=== PATIENT | female | born 1980 | race Caucasian/White ===

== ENCOUNTER → 2017-09-14 | Outpatient (CLI) | payer OTHER ==
[~2017-09-14] MED LIST: ALLEGRA ALLERG180 MG PO; AMOX1TAB5 PO; CALCITRIOL0.25 MCG; CALCITRIOL0.25 MCG PO; CALCIUM600 MG; FIORICET 50-301 EACH; FLONASE16 GM NS; IOPHEN DM-100 MG/5 M PO; IRBESARTAN150 MG; IRBESARTAN150 MG PO; LOW-OGESTREL1 TAB PO; NORVASC5 MG; NORVASC5 MG PO; ORALSEP BC; SINGULAIR 10MG10 MG PO; SYNTHROID175 MCG; SYNTHROID175 MCG PO; SYNTHROID200 MCG; SYNTHROID200 MCG PO; TESSALON PERLE100 MG PO; ZITHROMAX TRI-500 MG PO; ZYRTEC10 MG PO
== END | disposition home or self-care (01) ==
LOC: MAMO-SONO 16:00
DX: Z12.31 Encounter for screening mammogram for malignant neoplasm of breast (principal); N60.21 Fibroadenosis of right breast; N60.22 Fibroadenosis of left breast; D24.1 Benign neoplasm of right breast; D24.2 Benign neoplasm of left breast

== ENCOUNTER → 2017-10-07 | Outpatient (CLI) | payer OTHER | END | disposition home or self-care (01) | LOC: PPHC 15:34 | DX: E03.8 Other specified hypothyroidism (principal); I10 Essential (primary) hypertension ==

== ENCOUNTER → 2017-10-19 | Outpatient (CLI) | payer OTHER | END | disposition home or self-care (01) | LOC: LAB 06:13 | DX: Z12.39 Encounter for other screening for malignant neoplasm of breast (principal) ==

== ENCOUNTER 2017-12-20 08:01 | Outpatient (CLI) | payer OTHER | END 2017-12-20 08:15 | disposition home or self-care (01) | LOC: LAB 08:01 | DX: Z13.1 Encounter for screening for diabetes mellitus (principal); R73.03 Prediabetes; I10 Essential (primary) hypertension; E89.0 Postprocedural hypothyroidism; E89.2 Postprocedural hypoparathyroidism ==

== ENCOUNTER → 2017-12-23 | Outpatient (CLI) | payer OTHER | END | disposition home or self-care (01) | LOC: LAB 11:01 | DX: M06.9 Rheumatoid arthritis, unspecified (principal) ==

== ENCOUNTER 2018-05-16 16:01 | Outpatient (CLI) | payer OTHER ==
[~2018-05-16 16:01] MED LIST changes: -ALLEGRA ALLERG180 MG PO; -AMOX1TAB5 PO; -CALCIUM600 MG; -FIORICET 50-301 EACH; -FLONASE16 GM NS; -IOPHEN DM-100 MG/5 M PO; -SINGULAIR 10MG10 MG PO; -SYNTHROID200 MCG; -SYNTHROID200 MCG PO; -TESSALON PERLE100 MG PO; -ZITHROMAX TRI-500 MG PO
== END 2018-05-16 16:15 | disposition home or self-care (01) ==
LOC: OFIC 805 16:01
DX: H65.192 Other acute nonsuppurative otitis media, left ear (principal); R09.81 Nasal congestion

== ENCOUNTER 2018-06-12 08:03 | Outpatient (CLI) | payer OTHER ==
[~2018-06-12] VITALS: Ht 152.4 cm; Wt 117.9 kg
[~2018-06-12 08:03] MED LIST changes: +ALLEGRA ALLERG180 MG PO; +AMOX1TAB5 PO; +CALCIUM600 MG; +FIORICET 50-301 EACH; +FLONASE16 GM NS; +IOPHEN DM-100 MG/5 M PO; +SINGULAIR 10MG10 MG PO; +SYNTHROID200 MCG; +SYNTHROID200 MCG PO; +TESSALON PERLE100 MG PO; +ZITHROMAX TRI-500 MG PO
== END 2018-06-12 08:15 | disposition home or self-care (01) ==
LOC: OFIC 805 08:03
DX: R09.81 Nasal congestion (principal); B34.9 Viral infection, unspecified; J30.89 Other allergic rhinitis

== ENCOUNTER → 2018-06-13 07:28 | Outpatient (CLI) | payer OTHER | END | disposition home or self-care (01) | LOC: LAB 07:28 | DX: E89.2 Postprocedural hypoparathyroidism (principal); E03.8 Other specified hypothyroidism; I10 Essential (primary) hypertension; R73.03 Prediabetes; D35.2 Benign neoplasm of pituitary gland; D27.1 Benign neoplasm of left ovary; E55.9 Vitamin D deficiency, unspecified; E78.2 Mixed hyperlipidemia; M62.81 Muscle weakness (generalized); M05.4 Rheumatoid myopathy with rheumatoid arthritis ==

== ENCOUNTER 2018-10-25 07:29 | Outpatient (CLI) | payer OTHER | END 2018-10-25 08:26 | disposition home or self-care (01) | LOC: LAB 07:29 | DX: E20.8 Other hypoparathyroidism (principal); R73.03 Prediabetes; I10 Essential (primary) hypertension; N83.202 Unspecified ovarian cyst, left side; D35.2 Benign neoplasm of pituitary gland; M32.9 Systemic lupus erythematosus, unspecified; E03.8 Other specified hypothyroidism; E55.9 Vitamin D deficiency, unspecified ==

== ENCOUNTER 2018-12-20 07:38 | Outpatient (CLI) | payer OTHER | END 2018-12-20 07:40 | disposition home or self-care (01) | LOC: LAB 07:38 | DX: E89.0 Postprocedural hypothyroidism (principal) ==

== ENCOUNTER 2019-03-29 13:56 | Outpatient (CLI) | payer OTHER | END 2019-03-29 14:03 | disposition home or self-care (01) | LOC: LAB 13:56 | DX: Z11.3 Encounter for screening for infections with a predominantly sexual mode of transmission (principal) ==

== ENCOUNTER 2019-05-23 10:42 | Outpatient (CLI) | payer OTHER | END 2019-05-23 10:44 | disposition home or self-care (01) | LOC: RAD 10:42 | DX: M54.2 Cervicalgia (principal); M54.89 Other dorsalgia ==

== ENCOUNTER 2019-07-02 14:52 | Outpatient (CLI) | payer OTHER | END 2019-07-02 14:54 | disposition home or self-care (01) | LOC: RAD 14:52 | DX: M25.562 Pain in left knee (principal) ==

== ENCOUNTER 2019-08-24 12:42 | Emergency (ER) | payer OTHER ==
[~2019-08-24] VITALS: Ht 160 cm; Wt 103.9 kg
[~2019-08-24 12:42] MED LIST changes: +NABUMETONE750 MG PO
[2019-08-24] MEDS ORDERED: HYDROCHLOROTH12.5 MG PO (12:59)
[2019-08-24] MEDS ORDERED: SYNTHROID175 MCG PO (12:59)
[2019-08-24] MEDS ORDERED: CALCITRIOL0.25 MCG PO (13:00)
[2019-08-24] MEDS ORDERED: LOW-OGESTREL-21 EACH (13:00)
[2019-08-24] MEDS ORDERED: BUTALBIT-ACETA1 EACH PO (13:09)
== END 2019-08-24 13:28 | disposition home or self-care (01) ==
LOC: ER 12:42
DX: G43.809 Other migraine, not intractable, without status migrainosus (principal)

== ENCOUNTER 2020-02-14 08:10 | Outpatient (CLI) | payer OTHER ==
[~2020-02-14 08:10] MED LIST changes: +BUTALBIT-ACETA1 EACH PO; +HYDROCHLOROTH12.5 MG PO; +LOW-OGESTREL-21 EACH
== END 2020-02-14 08:17 | disposition home or self-care (01) ==
LOC: LAB 08:10
PROVIDERS: ATTEND Radiology Diagnostic Radiology
DX: R51 Headache (principal)

== ENCOUNTER → 2020-02-14 | Outpatient (CLI) | payer OTHER | END | disposition home or self-care (01) | LOC: MRI 11:53 | DX: D35.2 Benign neoplasm of pituitary gland (principal); I67.81 Acute cerebrovascular insufficiency; R51 Headache ==

== ENCOUNTER 2020-03-21 08:22 | Outpatient (CLI) | payer OTHER | END 2020-03-21 15:00 | disposition home or self-care (01) | LOC: LAB 08:22 | DX: E03.8 Other specified hypothyroidism (principal); E11.65 Type 2 diabetes mellitus with hyperglycemia; E55.9 Vitamin D deficiency, unspecified; I10 Essential (primary) hypertension; Q50.1 Developmental ovarian cyst; D35.2 Benign neoplasm of pituitary gland ==

== ENCOUNTER 2020-04-15 09:31 | Outpatient (CLI) | payer OTHER ==
[~2020-04-15 09:31] MED LIST changes: +SKELAXIN800 MG PO; +VOLTAREN100 GM TOP
== END 2020-04-16 11:06 | disposition home or self-care (01) ==
LOC: RAD 09:31
DX: Z85.3 Personal history of malignant neoplasm of breast (principal); M25.562 Pain in left knee; Z12.31 Encounter for screening mammogram for malignant neoplasm of breast

== ENCOUNTER 2020-04-16 11:01 | Outpatient (CLI) | payer OTHER | END 2020-04-16 11:09 | disposition home or self-care (01) | LOC: MRI 11:01 | DX: M25.461 Effusion, right knee (principal); S83.101A Unspecified subluxation of right knee, initial encounter; S83.001A Unspecified subluxation of right patella, initial encounter | CPT/HCPCS: 73721 ==

== ENCOUNTER 2020-04-19 02:20 | Emergency (ER) | payer OTHER ==
[~2020-04-19] VITALS: Ht 160 cm; Wt 112.5 kg
[2020-04-19] MEDS ORDERED: KETO10TA2 PO (06:52)
== END 2020-04-19 07:13 | disposition home or self-care (01) ==
LOC: ER 02:20
DX: O26.891 Other specified pregnancy related conditions, first trimester (principal); R10.2 Pelvic and perineal pain; O34.81 Maternal care for other abnormalities of pelvic organs, first trimester; N83.292 Other ovarian cyst, left side; Z3A.01 Less than 8 weeks gestation of pregnancy

== ENCOUNTER 2020-05-27 06:00 | Outpatient (CLI) | payer OTHER ==
[~2020-05-27 06:00] MED LIST changes: +KETO10TA2 PO
== END 2020-05-27 14:10 | disposition home or self-care (01) ==
LOC: PPH VACUNA 06:00
DX: Z23 Encounter for immunization (principal)

== ENCOUNTER 2020-08-15 14:22 | Outpatient (CLI) | payer OTHER ==
[~2020-08-15 14:22] MED LIST changes: +DOLOGESIC 500-1 EACH PO
== END 2020-08-18 08:08 | disposition home or self-care (01) ==
LOC: RAD 14:22
PROVIDERS: ATTEND Internal Medicine Sports Medicine
DX: M22.42 Chondromalacia patellae, left knee (principal); M25.562 Pain in left knee; M17.12 Unilateral primary osteoarthritis, left knee
CPT/HCPCS: 73721

== ENCOUNTER 2020-11-03 07:47 | Outpatient (CLI) | payer OTHER | END 2020-11-03 07:59 | disposition home or self-care (01) | LOC: LAB 07:47 | PROVIDERS: ATTEND General Practice | DX: E03.8 Other specified hypothyroidism (principal); E89.2 Postprocedural hypoparathyroidism; D35.2 Benign neoplasm of pituitary gland; I10 Essential (primary) hypertension; E78.01 Familial hypercholesterolemia ==

== ENCOUNTER 2020-12-25 08:55 | Outpatient (CLI) | payer OTHER | END 2020-12-25 15:25 | disposition home or self-care (01) | LOC: LAB 08:55 | PROVIDERS: ATTEND Internal Medicine | DX: M32.8 Other forms of systemic lupus erythematosus (principal); B19.9 Unspecified viral hepatitis without hepatic coma; N05.2 Unspecified nephritic syndrome with diffuse membranous glomerulonephritis; N18.1 Chronic kidney disease, stage 1; E03.8 Other specified hypothyroidism; I10 Essential (primary) hypertension; M06.8A Other specified rheumatoid arthritis, other specified site; M35.00 Sjogren syndrome, unspecified; B96.0 Mycoplasma pneumoniae [M. pneumoniae] as the cause of diseases classified elsewhere; A69.20 Lyme disease, unspecified; B27.90 Infectious mononucleosis, unspecified without complication; B20 Human immunodeficiency virus [HIV] disease ==

== ENCOUNTER 2021-04-24 14:32 | Outpatient (CLI) | payer OTHER | END 2021-04-24 14:45 | disposition home or self-care (01) | LOC: MAMO-SONO 14:32 | PROVIDERS: ATTEND Surgery | DX: N60.21 Fibroadenosis of right breast (principal); N60.11 Diffuse cystic mastopathy of right breast; Z12.31 Encounter for screening mammogram for malignant neoplasm of breast; D24.1 Benign neoplasm of right breast; N60.22 Fibroadenosis of left breast; N60.12 Diffuse cystic mastopathy of left breast ==

== ENCOUNTER 2021-05-06 10:03 | Outpatient (CLI) | payer OTHER | END 2021-05-06 10:19 | disposition home or self-care (01) | LOC: LAB 10:03 | PROVIDERS: ATTEND General Practice | DX: Z03.818 Encounter for observation for suspected exposure to other biological agents ruled out (principal) ==

== ENCOUNTER 2021-06-05 08:00 | Outpatient (CLI) | payer OTHER | END 2021-06-05 08:30 | disposition home or self-care (01) | LOC: PPH VACUNA 08:00 | PROVIDERS: ATTEND Emergency Medicine Pediatric Emergency Medicine | DX: Z23 Encounter for immunization (principal) ==

== ENCOUNTER 2021-06-08 08:00 | Outpatient (CLI) | payer OTHER | END 2021-06-08 08:30 | disposition home or self-care (01) | LOC: PPH VACUNA 08:00 | PROVIDERS: ATTEND Emergency Medicine Pediatric Emergency Medicine | DX: Z23 Encounter for immunization (principal) ==

== ENCOUNTER 2021-06-16 10:54 | Outpatient (CLI) | payer OTHER | END 2021-06-16 10:59 | disposition home or self-care (01) | LOC: RAD 10:54 | PROVIDERS: ATTEND Internal Medicine | DX: M17.0 Bilateral primary osteoarthritis of knee (principal) ==

== ENCOUNTER 2021-07-03 07:24 | Outpatient (CLI) | payer OTHER | END 2021-07-03 15:28 | disposition home or self-care (01) | LOC: LAB 07:24 | PROVIDERS: ATTEND Internal Medicine | DX: R63.5 Abnormal weight gain (principal); E89.0 Postprocedural hypothyroidism ==

== ENCOUNTER 2021-10-05 07:24 | Outpatient (CLI) | payer OTHER | END 2021-10-05 09:35 | disposition home or self-care (01) | LOC: LAB 07:24 | PROVIDERS: ATTEND Internal Medicine | DX: I51.7 Cardiomegaly (principal); I10 Essential (primary) hypertension; Z87.59 Personal history of other complications of pregnancy, childbirth and the puerperium; E89.0 Postprocedural hypothyroidism; E66.01 Morbid (severe) obesity due to excess calories; Z68.41 Body mass index [BMI] 40.0-44.9, adult; E78.49 Other hyperlipidemia; E53.8 Deficiency of other specified B group vitamins; E55.9 Vitamin D deficiency, unspecified; Z11.3 Encounter for screening for infections with a predominantly sexual mode of transmission; Z11.4 Encounter for screening for human immunodeficiency virus [HIV]; Z83.3 Family history of diabetes mellitus ==

== ENCOUNTER 2021-10-05 07:50 | Outpatient (CLI) | payer OTHER | END 2021-10-05 07:53 | disposition home or self-care (01) | LOC: RAD 07:50 | PROVIDERS: ATTEND Internal Medicine | DX: M17.0 Bilateral primary osteoarthritis of knee (principal); I51.7 Cardiomegaly; N28.89 Other specified disorders of kidney and ureter; Z87.59 Personal history of other complications of pregnancy, childbirth and the puerperium; E89.0 Postprocedural hypothyroidism; E66.01 Morbid (severe) obesity due to excess calories; Z68.41 Body mass index [BMI] 40.0-44.9, adult; E78.49 Other hyperlipidemia; E53.8 Deficiency of other specified B group vitamins; E55.9 Vitamin D deficiency, unspecified; Z13.1 Encounter for screening for diabetes mellitus; Z11.3 Encounter for screening for infections with a predominantly sexual mode of transmission; Z11.4 Encounter for screening for human immunodeficiency virus [HIV] ==

== ENCOUNTER 2021-10-05 08:46 | Outpatient (CLI) | payer OTHER | END 2021-10-05 09:04 | disposition home or self-care (01) | LOC: NUCLEAR 08:46 | PROVIDERS: ATTEND Internal Medicine | DX: I51.7 Cardiomegaly (principal); I10 Essential (primary) hypertension ==

== ENCOUNTER 2021-10-10 10:39 | Outpatient (CLI) | payer OTHER | END 2021-10-10 10:54 | disposition home or self-care (01) | LOC: LAB 10:39 | PROVIDERS: ATTEND Internal Medicine | DX: E53.8 Deficiency of other specified B group vitamins (principal) ==

== ENCOUNTER 2021-10-30 10:28 | Outpatient (CLI) | payer OTHER | END 2021-10-30 11:21 | disposition home or self-care (01) | LOC: LAB 10:28 | PROVIDERS: ATTEND Internal Medicine | DX: E53.8 Deficiency of other specified B group vitamins (principal) ==

== ENCOUNTER 2021-11-05 08:00 | Outpatient (CLI) | payer OTHER ==
[2021-11-18] MEDS ORDERED: NABUMETONE750 MG PO (15:20)
[2021-11-18] MEDS ORDERED: NORFLEX100MG PO (15:20)
== END 2021-11-05 15:24 | disposition home or self-care (01) ==
LOC: LAB 08:00
DX: I10 Essential (primary) hypertension (principal); R73.09 Other abnormal glucose

== ENCOUNTER 2022-01-12 08:02 | Outpatient (CLI) | payer OTHER ==
[~2022-01-12 08:02] MED LIST changes: +NORFLEX100MG PO
== END 2022-01-12 09:39 | disposition home or self-care (01) ==
LOC: LAB 08:02
DX: N18.1 Chronic kidney disease, stage 1 (principal); I10 Essential (primary) hypertension; N30.00 Acute cystitis without hematuria; Z32.00 Encounter for pregnancy test, result unknown; Z85.43 Personal history of malignant neoplasm of ovary; E53.8 Deficiency of other specified B group vitamins; E89.0 Postprocedural hypothyroidism; R73.03 Prediabetes; Z13.1 Encounter for screening for diabetes mellitus; Z83.3 Family history of diabetes mellitus; E78.5 Hyperlipidemia, unspecified; Z87.59 Personal history of other complications of pregnancy, childbirth and the puerperium; E66.01 Morbid (severe) obesity due to excess calories

== ENCOUNTER 2022-02-15 08:33 | Outpatient (CLI) | payer OTHER | END 2022-02-15 09:25 | disposition home or self-care (01) | LOC: LAB 08:33 | PROVIDERS: ATTEND Internal Medicine | DX: D64.9 Anemia, unspecified (principal); R10.9 Unspecified abdominal pain; E03.9 Hypothyroidism, unspecified; E78.5 Hyperlipidemia, unspecified; R73.01 Impaired fasting glucose; D35.2 Benign neoplasm of pituitary gland; I10 Essential (primary) hypertension; E89.2 Postprocedural hypoparathyroidism ==

== ENCOUNTER 2022-04-06 08:24 | Outpatient (CLI) | payer OTHER | END 2022-04-06 08:32 | disposition home or self-care (01) | LOC: LAB 08:24 | PROVIDERS: ATTEND Specialist | DX: I10 Essential (primary) hypertension (principal); R73.09 Other abnormal glucose; E66.01 Morbid (severe) obesity due to excess calories; Z68.42 Body mass index [BMI] 45.0-49.9, adult; Z28.9 Immunization not carried out for unspecified reason ==

== ENCOUNTER 2022-04-13 08:11 | Outpatient (CLI) | payer OTHER | END 2022-04-13 08:12 | disposition home or self-care (01) | LOC: LAB 08:11 | PROVIDERS: ATTEND Internal Medicine | DX: E88.81 Metabolic syndrome and other insulin resistance (principal) ==

== ENCOUNTER 2022-05-12 08:00 | Outpatient (CLI) | payer OTHER | END 2022-05-12 08:05 | disposition home or self-care (01) | LOC: PPH VACUNA 08:00 | PROVIDERS: ATTEND Emergency Medicine Pediatric Emergency Medicine | DX: Z23 Encounter for immunization (principal) ==

== ENCOUNTER 2022-05-24 08:26 | Outpatient (CLI) | payer OTHER | END 2022-05-24 08:36 | disposition home or self-care (01) | LOC: PPH VACUNA 08:26 | PROVIDERS: ATTEND Emergency Medicine Pediatric Emergency Medicine | DX: Z23 Encounter for immunization (principal) ==

== ENCOUNTER 2022-05-24 08:35 | Outpatient (CLI) | payer OTHER | END 2022-05-24 08:36 | disposition home or self-care (01) | LOC: LAB 08:35 | DX: E79.0 Hyperuricemia without signs of inflammatory arthritis and tophaceous disease (principal); E55.9 Vitamin D deficiency, unspecified; I13.10 Hypertensive heart and chronic kidney disease without heart failure, with stage 1 through stage 4 chronic kidney disease, or unspecified chronic kidney disease ==

== ENCOUNTER 2022-06-03 08:08 | Outpatient (CLI) | payer OTHER | END 2022-06-03 08:19 | disposition home or self-care (01) | LOC: MAMO-SONO 08:08 | DX: Z12.31 Encounter for screening mammogram for malignant neoplasm of breast (principal); N60.29 Fibroadenosis of unspecified breast ==

== ENCOUNTER 2022-06-30 09:45 | Outpatient (CLI) | payer OTHER | END 2022-06-30 15:29 | disposition home or self-care (01) | LOC: RX STUDY 09:45 | PROVIDERS: ATTEND Obstetrics & Gynecology Reproductive Endocrinology | DX: R13.10 Dysphagia, unspecified (principal) ==

== ENCOUNTER → 2022-09-01 07:45 | Outpatient (CLI) | payer OTHER | END | disposition home or self-care (01) | LOC: LAB 07:45 | PROVIDERS: ATTEND General Practice | DX: E03.9 Hypothyroidism, unspecified (principal); E28.2 Polycystic ovarian syndrome; I10 Essential (primary) hypertension; E78.01 Familial hypercholesterolemia; D31.2 Benign neoplasm of retina ==

== ENCOUNTER 2022-09-27 14:28 | Outpatient (CLI) | payer OTHER | END 2022-09-27 14:39 | disposition home or self-care (01) | LOC: RAD 14:28 | PROVIDERS: ATTEND Internal Medicine | DX: M17.0 Bilateral primary osteoarthritis of knee (principal); M76.51 Patellar tendinitis, right knee; M70.41 Prepatellar bursitis, right knee ==

== ENCOUNTER 2022-09-28 07:33 | Outpatient (CLI) | payer OTHER | END 2022-09-28 07:38 | disposition home or self-care (01) | LOC: SONOGRAMA 07:33 | PROVIDERS: ATTEND Specialist | DX: M76.51 Patellar tendinitis, right knee (principal); M70.41 Prepatellar bursitis, right knee ==

== ENCOUNTER 2022-09-29 10:59 | Outpatient (CLI) | payer OTHER | END 2022-09-29 13:00 | disposition home or self-care (01) | LOC: LAB 10:59 | PROVIDERS: ATTEND Internal Medicine Sports Medicine | DX: J20.0 Acute bronchitis due to Mycoplasma pneumoniae (principal); J20.9 Acute bronchitis, unspecified; J11.08 Influenza due to unidentified influenza virus with specified pneumonia; J15.7 Pneumonia due to Mycoplasma pneumoniae; N18.2 Chronic kidney disease, stage 2 (mild) ==

== ENCOUNTER 2022-11-11 07:36 | Outpatient (CLI) | payer OTHER | END 2022-11-11 23:00 | disposition home or self-care (01) | LOC: LAB 07:36 | PROVIDERS: ATTEND Internal Medicine | DX: D64.9 Anemia, unspecified (principal); R10.9 Unspecified abdominal pain; E78.5 Hyperlipidemia, unspecified; E11.9 Type 2 diabetes mellitus without complications; Z32.00 Encounter for pregnancy test, result unknown; D50.9 Iron deficiency anemia, unspecified; E55.9 Vitamin D deficiency, unspecified; D51.3 Other dietary vitamin B12 deficiency anemia; E03.9 Hypothyroidism, unspecified; M06.4 Inflammatory polyarthropathy; M10.09 Idiopathic gout, multiple sites ==

== ENCOUNTER → 2022-11-25 07:48 | Outpatient (CLI) | payer OTHER | END | disposition home or self-care (01) | LOC: LAB 07:48 | PROVIDERS: ATTEND General Practice | DX: D35.2 Benign neoplasm of pituitary gland (principal); E28.2 Polycystic ovarian syndrome; E03.9 Hypothyroidism, unspecified; E89.2 Postprocedural hypoparathyroidism; I10 Essential (primary) hypertension ==

== ENCOUNTER 2022-12-01 13:50 | Outpatient (CLI) | payer OTHER | END 2022-12-01 13:55 | disposition home or self-care (01) | LOC: NUCLEAR 13:50 | PROVIDERS: ATTEND Internal Medicine | DX: I82.402 Acute embolism and thrombosis of unspecified deep veins of left lower extremity (principal) ==

== ENCOUNTER 2023-01-05 09:36 | Outpatient (CLI) | payer OTHER | END 2023-01-05 09:40 | disposition home or self-care (01) | LOC: LAB 09:36 | DX: D64.9 Anemia, unspecified (principal); N18.2 Chronic kidney disease, stage 2 (mild) ==

== ENCOUNTER 2023-02-02 10:35 | Outpatient (CLI) | payer OTHER | END 2023-02-02 11:58 | disposition home or self-care (01) | LOC: LAB 10:35 | PROVIDERS: ATTEND Internal Medicine | DX: Z34.01 Encounter for supervision of normal first pregnancy, first trimester (principal); E03.8 Other specified hypothyroidism ==

== ENCOUNTER → 2023-02-03 08:10 | Outpatient (CLI) | payer OTHER | END | disposition home or self-care (01) | LOC: LAB 08:10 | PROVIDERS: ATTEND Internal Medicine | DX: D50.0 Iron deficiency anemia secondary to blood loss (chronic) (principal); E53.8 Deficiency of other specified B group vitamins; D52.9 Folate deficiency anemia, unspecified ==

== ENCOUNTER 2023-02-23 07:27 | Outpatient (CLI) | payer OTHER | END 2023-02-23 07:35 | disposition home or self-care (01) | LOC: LAB 07:27 | PROVIDERS: ATTEND Internal Medicine | DX: D50.0 Iron deficiency anemia secondary to blood loss (chronic) (principal); N18.2 Chronic kidney disease, stage 2 (mild); Z34.91 Encounter for supervision of normal pregnancy, unspecified, first trimester; O21.9 Vomiting of pregnancy, unspecified; O12.11 Gestational proteinuria, first trimester; R73.03 Prediabetes; Z13.1 Encounter for screening for diabetes mellitus; Z83.3 Family history of diabetes mellitus ==

== ENCOUNTER 2023-03-16 07:29 | Outpatient (CLI) | payer OTHER | END 2023-03-16 07:48 | disposition home or self-care (01) | LOC: LAB 07:29 | PROVIDERS: ATTEND Internal Medicine | DX: E03.8 Other specified hypothyroidism (principal) ==

== ENCOUNTER → 2023-05-12 | Outpatient (CLI) | payer OTHER | END | disposition home or self-care (01) | LOC: PPH VACUNA | PROVIDERS: ATTEND Emergency Medicine Pediatric Emergency Medicine | DX: Z23 Encounter for immunization (principal) ==

== ENCOUNTER 2023-05-18 09:42 | Outpatient (CLI) | payer OTHER | END 2023-05-18 10:08 | disposition home or self-care (01) | LOC: RAD 09:42 | PROVIDERS: ATTEND Internal Medicine | DX: J20.9 Acute bronchitis, unspecified (principal) ==

== ENCOUNTER 2023-05-19 09:43 | Outpatient (CLI) | payer OTHER | END 2023-05-19 09:48 | disposition home or self-care (01) | LOC: LAB 09:43 | DX: J11.89 Influenza due to unidentified influenza virus with other manifestations (principal) ==

== ENCOUNTER 2023-06-20 09:33 | Outpatient (CLI) | payer OTHER ==
[2023-06-20 10:48] LABS: PH,URINE 6.5 (5.0-8.0); URINE APPEARANCE Clear; URINE BILIRRUBIN Negative (NEGATIVE); URINE BLOOD Negative; URINE COLOR Yellow; URINE GLUCOSE Negative (NEGATIVE); URINE LEUKOCYTE Negative; URINE NITRATE Negative; URINE PROTEIN Negative (NEGATIVE)
[2023-06-20 10:55] LABS: URINE BACTERIA 50.3 uL (0.0-1933); URINE EPITHELIAL CELLS 8.3 uL (0.0-38.8); URINE RBC 24.1 uL (0.0-20.8); URINE WBC 2.7 uL (0.0-23.2)
== END 2023-06-20 10:54 | disposition home or self-care (01) ==
LOC: LAB 09:33
DX: N30.00 Acute cystitis without hematuria (principal)

== ENCOUNTER 2023-06-22 07:39 | Outpatient (CLI) | payer OTHER | END 2023-06-22 07:50 | disposition home or self-care (01) | LOC: MAMO-SONO 07:39 | PROVIDERS: ATTEND Internal Medicine | DX: Z12.31 Encounter for screening mammogram for malignant neoplasm of breast (principal); N64.9 Disorder of breast, unspecified ==

== ENCOUNTER 2023-07-11 06:02 | Day surgery (SDC) | payer OTHER ==
[2023-06-27 10:50] LABS: URINE APPEARANCE Clear; URINE BILIRRUBIN Negative (NEGATIVE); URINE BLOOD Large; URINE COLOR Yellow; URINE GLUCOSE Negative (NEGATIVE); URINE LEUKOCYTE Small; URINE NITRATE Negative; URINE PROTEIN Trace (NEGATIVE)
[2023-06-27 10:54] LABS: HEMATOCRIT 37.4 % (36.0-45.00); MEAN CELL VOLUME 87.3 fL (80.00-100.00); MEAN CORPUSCULAR HEMOGLOBIN 30.4 pg (27.00-32.0); MEAN CORPUSCULAR HGB CONC 34.8 g/dl (32.0-36.0); PLATELET COUNT 279 K/uL (150-450); RED BLOOD COUNT 4.28 M/uL (4.00-6.00); RED CELL DISTRIBUTION WIDTH 12.8 % (11.5-14.5)
[2023-06-27 10:55] LABS: URINE BACTERIA 191.4 uL (0.0-1933); URINE EPITHELIAL CELLS 22.2 uL (0.0-38.8); URINE RBC 1037.4 uL (0.0-20.8); URINE WBC 13.1 uL (0.0-23.2)
[2023-06-27 11:24] LABS: ALBUMIN 3.8 gm/dL (3.4-5.0); BILIRUBIN TOTAL 0.83 mg/dL (0.3-1.2); CALCIUM 8.2 mg/dL (8.5-10.1); CREATININE SERUM 0.91 mg/dL (0.55-1.02); GFR 68.12; GLOBULINA 3.2 G/DL (2.4-3.5); POTASSIUM 3.99 mEq/L (3.5-5.1)
[2023-06-27 11:31] LABS: INR 1.04; PARTIAL THROMBOPLASTIN TIME 31.3 SECONDS (22.0-34.0); PROTHROMBIN TIME 10.9 SECONDS (9.0-11.5)
[~2023-07-11 06:02] MED LIST changes: +ACTICAL SOFTGE1 EACH PO; +FOLIC PO; +LABETALOL HCL200 MG PO; +MULTI PO; +PEPCI PO; +PROCAR PO; +PROTO PO; +ROCALTROL0.25 MCG PO; +VITAMIN D PO; +ZYRTEC10 M3 PO; +[UNRECOGNIZED DRUG - OTHER] PO
== END 2023-07-11 13:40 | disposition home or self-care (01) ==
LOC: CIR.AMB 06:02
PROVIDERS: ATTEND Otolaryngology
DX: J38.3 Other diseases of vocal cords (principal); Z88.6 Allergy status to analgesic agent; Z20.822 Contact with and (suspected) exposure to COVID-19; R49.0 Dysphonia; I10 Essential (primary) hypertension

== ENCOUNTER → 2023-07-11 06:18 | Outpatient (CLI) | payer OTHER ==
[2023-07-11 07:12] LABS: HEMATOCRIT 38.1 % (36.0-45.00); HEMOGLOBIN 13.6 g/dL (12.0-15.00); MEAN CELL VOLUME 86.3 fL (80.00-100.00); MEAN CORPUSCULAR HEMOGLOBIN 30.8 pg (27.00-32.0); MEAN CORPUSCULAR HGB CONC 35.7 g/dl (32.0-36.0); PLATELET COUNT 315 K/uL (150-450); RED BLOOD COUNT 4.41 M/uL (4.00-6.00); RED CELL DISTRIBUTION WIDTH 13.2 % (11.5-14.5)
[2023-07-11 07:46] LABS: ALBUMIN 3.8 gm/dL (3.4-5.0); BILIRUBIN TOTAL 0.83 mg/dL (0.3-1.2); CALCIUM 8.2 mg/dL (8.5-10.1); CHOL HDL RATIO 3.3 (0-5.0); CREATININE SERUM 0.92 mg/dL (0.55-1.02); GFR 67.27; GLOBULINA 3.4 G/DL (2.4-3.5); POTASSIUM 3.89 mEq/L (3.5-5.1); TOTAL PROTEIN 7.2 gm/dL (6.4-8.2)
[2023-07-11 08:09] LABS: TSH 1.37 uIU/mL (0.358-3.74)
[2023-07-11 14:28] LABS: T4 FREE 1.2 NG/ML (0.76-1.46)
== END | disposition home or self-care (01) ==
LOC: LAB 06:18
PROVIDERS: ATTEND General Practice
DX: I10 Essential (primary) hypertension (principal); R73.01 Impaired fasting glucose; E78.01 Familial hypercholesterolemia; D30.20 Benign neoplasm of unspecified ureter; U07.1 COVID-19; Z20.822 Contact with and (suspected) exposure to COVID-19; Z88.5 Allergy status to narcotic agent

== ENCOUNTER 2024-03-07 10:29 | Outpatient (CLI) | payer OTHER | END 2024-03-07 11:47 | disposition home or self-care (01) | LOC: NST 10:29 | PROVIDERS: ATTEND Obstetrics & Gynecology Maternal & Fetal Medicine | DX: Z34.83 Encounter for supervision of other normal pregnancy, third trimester (principal) ==

== ENCOUNTER 2024-03-14 11:17 | Outpatient (CLI) | payer OTHER | END 2024-03-14 11:57 | disposition home or self-care (01) | LOC: NST 11:17 | PROVIDERS: ATTEND Obstetrics & Gynecology Maternal & Fetal Medicine | DX: Z34.83 Encounter for supervision of other normal pregnancy, third trimester (principal) ==

== ENCOUNTER 2024-03-16 07:50 | Outpatient (CLI) | payer OTHER ==
[2024-03-16] MEDS ORDERED: SYNTHROID300 MCG PO (22:54)
[2024-03-16] MEDS ORDERED: TRANDATE300 MG PO (22:54)
[2024-03-16] MEDS ORDERED: INTEGRA CAPSUL1 EACH PO (22:54)
[2024-03-16] MEDS ORDERED: ASA81 MG PO (22:55)
[2024-03-16] MEDS ORDERED: PRENATAL CAPLE1 EAC1 PO (22:55)
== END 2024-03-16 08:44 | disposition home or self-care (01) ==
LOC: NST 07:50
PROVIDERS: ATTEND Obstetrics & Gynecology Maternal & Fetal Medicine
DX: Z34.83 Encounter for supervision of other normal pregnancy, third trimester (principal)

== ENCOUNTER 2024-03-16 21:37 | Inpatient (IN) | payer OTHER ==
[~2024-03-16] VITALS: Ht 162.6 cm; Wt 1.8 kg
[2024-03-16 22:08] LABS: HEMATOCRIT 33.3 % (36.0-45.00); HEMOGLOBIN 11.9 g/dL (12.0-15.00); MEAN CELL VOLUME 89.5 fL (80.00-100.00); MEAN CORPUSCULAR HGB CONC 35.8 g/dl (32.0-36.0); PLATELET COUNT 192 K/uL (150-450); RED BLOOD COUNT 3.72 M/uL (4.00-6.00)
[2024-03-16 22:26] LABS: INR 0.97; PARTIAL THROMBOPLASTIN TIME 31.6 SECONDS (22.0-34.0); PROTHROMBIN TIME 10.2 SECONDS (9.0-11.5)
[2024-03-16 22:30] LABS: ALBUMIN 2.9 gm/dL (3.4-5.0); BILIRUBIN TOTAL 0.68 mg/dL (0.3-1.2); CREATININE SERUM 1.33 mg/dL (0.55-1.02); GFR 43.75; GLOBULINA 3.3 G/DL (2.4-3.5); POTASSIUM 3.92 mEq/L (3.5-5.1); TOTAL PROTEIN 6.2 gm/dL (6.4-8.2)
[2024-03-16 22:37] LABS: CALCIUM 8.4 mg/dL (8.5-10.1)
[2024-03-16] MEDS ORDERED: TRANDATE300 MG PO (22:54)
[2024-03-16] MEDS ORDERED: INTEGRA CAPSUL1 EACH PO (22:54)
[2024-03-16] MEDS ORDERED: SYNTHROID300 MCG PO (22:54)
[2024-03-16] MEDS ORDERED: ASA81 MG PO (22:55)
[2024-03-16] MEDS ORDERED: PRENATAL CAPLE1 EAC1 PO (22:55)
[2024-03-16] MEDS ORDERED: BETAMETHASONE ACETATE,SOD PHOS 30 MG/5 ML ML IM STA (22:58)
[2024-03-16] MEDS ORDERED: RINGERS SOLUTION,LACTATED 1,000 ML IV SCH (23:00)
[2024-03-16] MEDS ORDERED: FAMOTIDINE/PF 20 MG/2 ML VIAL IV SCH (23:00)
[2024-03-17] MEDS ORDERED: LEVOTHYROXINE SODIUM 200 MCG TABLET PO SCH (06:15)
[2024-03-17] MEDS ORDERED: NIFEDIPINE 30 MG TAB.SA.OSM PO SCH (12:00)
[2024-03-17] MEDS ORDERED: CALCITRIOL PO SCH (14:05)
[2024-03-17] MEDS ORDERED: ACETAMINOPHEN 500 MG GEL..CAP PO PRN (20:30)
[2024-03-17] MEDS ORDERED: LABETALOL HCL 300 MG TABLET PO SCH (21:00)
[2024-03-17] MEDS ORDERED: BETAMETHASONE ACETATE,SOD PHOS 30 MG/5 ML ML IM ONE (22:25)
[2024-03-18] MEDS ORDERED: CEFAZOLIN SODIUM 1,000 MG VIAL IV SCH
[2024-03-18] MEDS ORDERED: DIPHENHYDRAMINE HCL 50 MG/ML VIAL 1ML IV ONE (00:15)
[2024-03-18] MEDS ORDERED: ERYTHROMYCIN BASE 1 GM TUBE OP ONE (09:15)
[2024-03-18] MEDS ORDERED: OXYTOCIN 10 UNITS/ML VIAL IV ONE (09:15)
[2024-03-18] MEDS ORDERED: MORPHINE SULFATE 4 MG/ML CARTRIDGE IV SCH (10:04)
[2024-03-18] MEDS ORDERED: OXYTOCIN 1,000 ML IV ONE (10:15)
[2024-03-18] MEDS ORDERED: KETOROLAC TROMETHAMINE 30 MG VIAL IV SCH (12:00)
[2024-03-18] MEDS ORDERED: CALCITRIOL 0.25 MCG CAPSULE PO SCH ×2 (12:00)
[2024-03-18 15:21] LABS: ABG pCO2 57.3 mmHg (35-45); BASE EXCESS -8.2 mmol/l; BICARBONATE 20.8 mmol/l (23-25); SaO2 11.6 %; Tco2 22.6 mmol/l
[2024-03-18 15:23] LABS: ABG pCO2 57.7 mmHg (35-45); BASE EXCESS -8.2 mmol/l; BICARBONATE 20.9 mmol/l (23-25); SaO2 5.2 %; Tco2 22.7 mmol/l
[2024-03-18 16:37] LABS: ABG PH 7.178 (7.35-7.45); ABG PO2 8.5 mmHg (80-100); o2 21 %
[2024-03-18 16:37] LABS: ABG PH 7.178 (7.35-7.45); ABG PO2 14.7 mmHg (80-100); o2 21 %
[2024-03-18] MEDS ORDERED: LABETALOL HCL 300 MG TABLET PO SCH (17:00)
[2024-03-18] MEDS ORDERED: GABAPENTIN 300 MG CAPSULE PO SCH (17:00)
[2024-03-18] MEDS ORDERED: ACETAMINOPHEN 500 MG GEL..CAP PO SCH (18:00)
[2024-03-18] MEDS ORDERED: ENOXAPARIN SODIUM 40 MG/0.4 ML SYRINGE SUBCUTANEO SCH (22:00)
[2024-03-19 07:16] LABS: HEMATOCRIT 27.9 % (36.0-45.00); HEMOGLOBIN 10.2 g/dL (12.0-15.00); MEAN CELL VOLUME 88.9 fL (80.00-100.00); MEAN CORPUSCULAR HEMOGLOBIN 32.4 pg (27.00-32.0); MEAN CORPUSCULAR HGB CONC 36.5 g/dl (32.0-36.0); PLATELET COUNT 154 K/uL (150-450); RED BLOOD COUNT 3.14 M/uL (4.00-6.00); RED CELL DISTRIBUTION WIDTH 13.4 % (11.5-14.5)
[2024-03-19] MEDS ORDERED: PNV,CALCIUM 72/IRON/FOLIC ACID 1 TAB TABLET PO SCH (09:00)
[2024-03-19] MEDS ORDERED: HYDROCHLOROTHIAZIDE 25 MG TABLET PO SCH (09:00)
[2024-03-19] MEDS ORDERED: DOCUSATE SODIUM 100MG CAP PO SCH (09:00)
[2024-03-19] MEDS ORDERED: OxyCODONE HCL/APAP UD (PERCOCET) PO SCH (09:00)
[2024-03-19] MEDS ORDERED: SIMETHICONE 125 MG CAPSULE PO SCH (09:00)
[2024-03-19] MEDS ORDERED: NIFEDIPINE ER30 MG (10:42)
[2024-03-19] MEDS ORDERED: NIFEDIPINE ER30 M1 (10:42)
[2024-03-19] MEDS ORDERED: METFORMIN HCL750 MG (10:42)
[2024-03-19] MEDS ORDERED: INTEGRA F CAPS1 EAC1 (10:42)
[2024-03-19] MEDS ORDERED: IBUprofen 600 MG TABLET PO SCH (12:00)
[2024-03-19] MEDS ORDERED: KETOROLAC TROMETHAMINE 10 MG TABLET PO SCH (12:00)
[2024-03-20] MEDS ORDERED: LABETALOL HCL 100 MG TABLET PO NR (09:00)
[2024-03-20] MEDS ORDERED: ACETAMINOPHEN 500 MG GEL..CAP PO PRN (09:15)
[2024-03-20] MEDS ORDERED: IBUprofen 600 MG TABLET PO SCH (12:00)
[2024-03-20] MEDS ORDERED: NIFEDIPINE 60 MG TAB.SA.OSM PO SCH (12:00)
[2024-03-20] MEDS ORDERED: LABETALOL HCL 200 MG TABLET PO SCH (17:00)
[2024-03-21] MEDS ORDERED: BISACODYL 10 MG/SUPP.RECT SUPP.RECT RECTAL NR (08:45)
[2024-03-21] MEDS ORDERED: HYDROCHLOROTHIAZIDE 25 MG TABLET PO SCH (09:00)
[2024-03-21] MEDS ORDERED: FUROsemide 20 MG TABLET PO SCH (09:00)
[2024-03-21 11:47] LABS: HEMATOCRIT 30.4 % (36.0-45.00); HEMOGLOBIN 10.9 g/dL (12.0-15.00); MEAN CELL VOLUME 90.2 fL (80.00-100.00); MEAN CORPUSCULAR HEMOGLOBIN 32.4 pg (27.00-32.0); MEAN CORPUSCULAR HGB CONC 35.9 g/dl (32.0-36.0); PLATELET COUNT 196 K/uL (150-450); RED BLOOD COUNT 3.37 M/uL (4.00-6.00); RED CELL DISTRIBUTION WIDTH 12.7 % (11.5-14.5)
[2024-03-21 11:48] LABS: PH,URINE 5.5 (5.0-8.0); URINE APPEARANCE Clear; URINE BILIRRUBIN Negative (NEGATIVE); URINE BLOOD Moderate; URINE COLOR Yellow; URINE GLUCOSE Negative (NEGATIVE); URINE LEUKOCYTE Negative; URINE NITRATE Negative; URINE PROTEIN Negative (NEGATIVE)
[2024-03-21 11:53] LABS: URINE BACTERIA 350.1 uL (0.0-1933); URINE EPITHELIAL CELLS 23.1 uL (0.0-38.8); URINE RBC 436.6 uL (0.0-20.8); URINE WBC 13.1 uL (0.0-23.2)
[2024-03-21 12:33] LABS: ALBUMIN 2.7 gm/dL (3.4-5.0); BILIRUBIN TOTAL 0.7 mg/dL (0.3-1.2); CREATININE SERUM 0.96 mg/dL (0.55-1.02); GFR 63.74; GLOBULINA 3.1 G/DL (2.4-3.5); POTASSIUM 4.14 mEq/L (3.5-5.1); TOTAL PROTEIN 5.8 gm/dL (6.4-8.2)
[2024-03-22] MEDS ORDERED: hydrALAZINE HCL 25 MG TABLET PO SCH (09:00)
== END 2024-03-22 18:15 | disposition home or self-care (01) | DRG 786 ==
LOC: LDR 21:37 → OB/GYN 21:37 → O/R 03-18 10:13 → OB/GYN 03-18 10:17 → O/R 03-18 10:25 → OB/GYN 03-18 10:46
PROVIDERS: Obstetrics & Gynecology Gynecology; ADMIT Obstetrics & Gynecology; ATTEND Obstetrics & Gynecology
PROC: 4A1HXCZ Monitoring of Products of Conception, Cardiac Rate, External Approach (ICD-10-PCS; 2024-03-16)
PROC: 10D00Z1 Extraction of Products of Conception, Low, Open Approach (ICD-10-PCS; principal; 2024-03-18 07:00)
DX: O36.5931 Maternal care for other known or suspected poor fetal growth, third trimester, fetus 1 (principal); O60.14X2 Preterm labor third trimester with preterm delivery third trimester, fetus 2; O10.92 Unspecified pre-existing hypertension complicating childbirth; O34.211 Maternal care for low transverse scar from previous cesarean delivery; O30.033 Twin pregnancy, monochorionic/diamniotic, third trimester; Z3A.35 35 weeks gestation of pregnancy; Z37.2 Twins, both liveborn